=== PATIENT | female | born 1955 | race African-American/Black ===

== ENCOUNTER → 2016-11-21 | Outpatient (CLI) | payer BC ==
[~2016-11-21] MED LIST: AMLODIPINE BESY10 MG PO; BENZONATATE PO; CENTRUM SILVER PO; DIOVAN HCT 160-1 TAB PO; FLEXERIL PO; GLUCOTROL PO; K-DUR20 ME1 PO; KCL PO; LOSARTAN-HCTZ1 EAC1 PO; MEDROL PO; METFORMIN PO; NAPROSYN500 MG PO; NORVASC PO; PERCOCET7.5 PO; SIMVASTATIN10 MG PO; ZOFRAN ODT4 MG PO
[2016-11-21 12:19] LABS: ALBUMIN SERUM 3.8 g/dL (3.5-5.0); BILIRUBIN,TOTAL 0.7 mg/dL (0.2-2.0); BUN/CREATININE RATIO 11.42; CREATININE SERUM 0.7 mg/dL (0.6-1.4); GLOM FILT RATE Estimated 109.1 mL/min (>60); POTASSIUM 3.8 mmol/L (3.5-5.1); PROTEIN TOTAL SERUM 6.8 g/dL (6.0-8.3)
== END | disposition home or self-care (01) ==
LOC: CLAB 11:22
PROVIDERS: Internal Medicine Endocrinology, Diabetes & Metabolism
DX: E11.65 Type 2 diabetes mellitus with hyperglycemia (principal); I10 Essential (primary) hypertension
CPT/HCPCS: 36415; 80053; 80061; 83036

== ENCOUNTER 2016-12-27 04:29 | Emergency (ER) | payer BC | END 2016-12-27 04:30 | disposition home or self-care (01) | LOC: CED 04:29 | DX: Z53.21 Procedure and treatment not carried out due to patient leaving prior to being seen by health care provider (principal) ==